=== PATIENT | female | born 1950 | race Caucasian/White ===

== ENCOUNTER 2019-06-08 07:28 | Outpatient (CLI) | payer MEDICARE, BC, SELFPAY ==
--- NOTE | 2019-06-08 07:15 | USCV_ITS ---
Krys Solis Age: 68 Gender: F : 1950 Exam Date: 06/08/2019 07:36 Ordering Phys: Claudia Gorman MD ([email or web address]) Technologist: Dilia Garcia [place] [facility] [place] ASSESS LVF BP: 105 / 54 HR: 88 Rhythm: Sinus Technical Quality: Adequate MEASUREMENTS (Male / Female) Normal Values 2D ECHO LV Diastolic Diameter PLAX 6.1 cm 4.2 - 5.9 / 3.9 - 5.3 cm LV Systolic Diameter PLAX 5.6 cm IVS Diastolic Thickness 0.7 cm 0.6 - 1.0 / 0.6 - 0.9 cm IVS Systolic Thickness 0.8 cm LVPW Diastolic Thickness 0.8 cm 0.6 - 1.0 / 0.6 - 0.9 cm LVPW Systolic Thickness 1.1 cm LVOT Diameter 2.0 cm LV Ejection Fraction 2D Teich 19.1 % LV Ejection Fraction MOD 2C 20.8 % LV Ejection Fraction 2C AL 19.7 % LA Diameter 4.3 cm LA Width 4.7 cm LA Height 5.6 cm RA Width 3.9 cm RA Height 4.6 cm Aorta at Sinotubular Diameter 2.2 cm M-MODE LV Diastolic Diameter MM 7.1 cm 4.2 - 5.9 / 3.9 - 5.3 cm LV Systolic Diameter MM 5.8 cm LV Ejection Fraction MM Teich 37.5 % IVS Diastolic Thickness MM 0.6 cm 0.6 - 1.0 / 0.6 - 0.9 cm IVS Systolic Thickness MM 0.9 cm LVPW Diastolic Thickness MM 0.5 cm 0.6 - 1.0 / 0.6 - 0.9 cm LVPW Systolic Thickness MM 1.0 cm Aortic Annulus Diameter 2.5 cm LA Ao Ratio MM 1.7 MV E Point Septal Separation 2.1 cm DOPPLER AV Peak Velocity 93.0 cm/s LVOT Peak Velocity 53.0 cm/s AV Area Cont Eq vti 1.8 cm squared AV Area Cont Eq pk 1.8 cm squared MV Area PHT 5.0 cm squared Mitral E to A Ratio 1.4 MV E' Velocity 8.0 cm/s Mitral E to MV E' Ratio 13.2 Mitral E to LV E' Lateral Ratio 10.5 Mitral E to LV E' Septal Ratio 17.9 TR Peak Velocity 403.8 cm/s TR Peak Gradient 65.2 mmHg TR Mean Velocity 311.4 cm/s TR Mean Gradient 40.7 mmHg TR Velocity Time Integral 144.0 cm TV Peak E Velocity 55.0 cm/s Right Atrial Pressure 3.0 mmHg Pulmonary Artery Systolic Pressu 68.2 mmHg PV Peak Velocity 59.0 cm/s RV Acceleration Time 0.1 s RV Ejection Time 0.2 s RV AcT/ET 0.2 FINDINGS Left Ventricle Severely increased left ventricular cavity size. Severely decreased left ventricular systolic function. Left ventricular ejection fraction is estimated at 30 %. Global left ventricular hypokinesis. Grade II/IV diastolic dysfunction, moderately elevated filling pressures. Right Ventricle Normal right ventricular size. Moderate pulmonary hypertension, RVSP 68.2 mmHg. Right Atrium The right atrium is normal in size. Left Atrium Severely increased left atrial size. Mitral Valve Mildly thickened mitral valve. No mitral valve stenosis. Severe mitral valve regurgitation. Aortic Valve Structurally normal aortic valve without significant sclerosis or stenosis. There is no aortic regurgitation. Tricuspid Valve Moderate tricuspid valve regurgitation. Pulmonic Valve Moderate pulmonary valve regurgitation. Pericardium Normal pericardium without effusion. Aorta Normal ascending aorta dimension. CONCLUSIONS 1-Severely increased left ventricular cavity size. Severely decreased left ventricular systolic function. Left ventricular ejection fraction is estimated at 30 %. Global left ventricular hypokinesis. Grade II/IV diastolic dysfunction, moderately elevated filling pressures. 2-Normal right ventricular size. Moderate pulmonary hypertension, RVSP 68.2 mmHg. 3-Severely increased left atrial size. 4-Mildly thickened mitral valve. No mitral valve stenosis. Severe mitral valve regurgitation. 5-Structurally normal aortic valve without significant sclerosis or stenosis. There is no aortic regurgitation. 6-Moderate tricuspid valve regurgitation. 7-Moderate pulmonary valve regurgitation. 8-There is no pericardial effusion. 9-When compared to the prior echocardiogram dated 03/24/2018, left ventricular ejection fraction has reduced from moderately depressed 40% to severely depressed 30%. There is worsening of mitral valve regurgitation to severe category Claudia Gorman MD (Electronically Signed) Final Date: 08 June 2019 11:42 S
== END 2019-06-08 07:29 | disposition home or self-care (01) ==
LOC: RAD 07:32
PROVIDERS: Family Provider Family Medicine; PCP Family Medicine; Visit Provider Internal Medicine Cardiovascular Disease
DX: I07.1 Rheumatic tricuspid insufficiency (principal); I37.1 Nonrheumatic pulmonary valve insufficiency; I34.0 Nonrheumatic mitral (valve) insufficiency; R06.02 Shortness of breath; R07.9 Chest pain, unspecified
CPT/HCPCS: 93306

== ENCOUNTER → 2019-06-16 15:19 | Outpatient (BNVA) | payer MEDICARE, BC, SELFPAY | PROVIDERS: Family Provider Family Medicine; PCP Family Medicine; Visit Provider Nurse Practitioner Family | DX: I50.9 Heart failure, unspecified (principal); R07.9 Chest pain, unspecified | CPT/HCPCS: 80048; 83880 ==

== ENCOUNTER 2021-03-14 11:43 | Outpatient (CLI) | payer MEDICARE, BC, SELFPAY ==
--- NOTE | 2021-03-14 11:48 | MM_ITS ---
WS: [id number] BILATERAL DIGITAL SCREENING MAMMOGRAPHY WITH CAD CLINICAL INFORMATION: SCREENING HISTORY: Screening mammogram. No current complaints. COMPARISON: TECHNIQUE: Bilateral CC and MLO views. FINDINGS: History of breast reduction Scattered fibroglandular densities bilaterally. No suspicious focal mass, asymmetry, calcifications, or architectural distortion. No evidence of malignancy. MM/[id number] IMPRESSION: BI-RADS: 1-Negative FOLLOW UP: 1 Year Follow-up Recommend return to annual screening mammography.
== END 2021-03-14 11:44 | disposition home or self-care (01) ==
PROVIDERS: PCP Family Medicine; Visit Provider Family Medicine
DX: Z12.31 Encounter for screening mammogram for malignant neoplasm of breast (principal)
CPT/HCPCS: 77067

== ENCOUNTER → 2022-02-04 14:00 | Outpatient (BNVA) | payer MEDICARE, BC, SELFPAY | PROVIDERS: PCP Family Medicine; Visit Provider Internal Medicine Rheumatology | DX: R76.8 Other specified abnormal immunological findings in serum (principal); Z87.2 Personal history of diseases of the skin and subcutaneous tissue; I50.42 Chronic combined systolic (congestive) and diastolic (congestive) heart failure; H54.8 Legal blindness, as defined in USA | CPT/HCPCS: 99203; 99204 ==

== ENCOUNTER 2022-04-17 08:10 | Outpatient (CLI) | payer MEDICARE, BC, SELFPAY ==
--- NOTE | 2022-04-17 08:21 | MM_ITS ---
WS: [id number] Bilateral screening 3D tomosynthesis digital mammogram, 04/17/2022 Clinical Data: SCREENING Comparison: 03/14/2021, 02/23/2019, 02/11/2018, 01/20/2017, 05/23/2015, 12/14/2012, 08/15/2011, 07/17/2009, . Findings: The breast parenchymal pattern shows fat replacement. No spiculated masses or clustered calcification s are seen. There are no secondary signs of carcinoma. There are lymph nodes in both axilla. MM/[id number] Impression: 1. Negative bilateral mammogram unchanged. 2. Recommend annual screening mammograms. BIRADS: 1-Negative FOLLOW UP: 1 Year Follow-up The CAD program checker was used.
== END 2022-04-17 08:11 | disposition home or self-care (01) ==
PROVIDERS: PCP Family Medicine; Visit Provider Internal Medicine
DX: Z12.31 Encounter for screening mammogram for malignant neoplasm of breast (principal)
CPT/HCPCS: 77063; 77067

== ENCOUNTER 2023-07-08 10:01 | Outpatient (CLI) | payer MEDICARE, OTHER, SELFPAY ==
--- NOTE | 2023-07-08 10:08 | MM_ITS ---
WS: [id number] BILATERAL SCREENING DIGITAL TOMOSYNTHESIS MAMMOGRAM WITH CAD HISTORY: Screening. COMPARISON: 04/17/2022 and 03/14/2021 Bilateral CC and MLO views with tomosynthesis and synthetic mammography submitted. Computer aided det ection analyzed. Breast composition: There are scattered areas of fibroglandular density. No suspicious masses, microc alcifications or architectural distortion. Stable oil cyst measures 5 mm medial LEFT breast. Benign c alcifications LEFT breast. IMPRESSION: MM/[place] [id number] BI-RADS: 2-Benign FOLLOW UP: 1 Year Follow-up
== END 2023-07-08 10:02 | disposition home or self-care (01) ==
LOC: RAD 10:02
PROVIDERS: PCP Family Medicine; Visit Provider Family Medicine
DX: Z12.31 Encounter for screening mammogram for malignant neoplasm of breast (principal)
CPT/HCPCS: 77063; 77067

== ENCOUNTER 2023-11-03 09:01 | Emergency (ER) | payer MEDICARE, OTHER, SELFPAY ==
[2023-11-03] VITALS (7 sets, daily range): BP systolic 94–123; BP diastolic 51–65; PULSE 60–78; RESP 17–25; TEMP 36.4; O2SAT 96–99; BMI 22.4
--- NOTE | 2023-11-03 09:04 | XR_ITS ---
WS: [id number] PORTABLE CHEST HISTORY: Weakness COMPARISON: 09/19/2018 Quality this examination is significantly compromised by overlying artifacts obscuring portions of th e lungs and soft tissues. Hyperexpanded lungs. There are a few scattered granulomata. Not all portions of the lungs are visuali zed well. No pleural effusion or pneumothorax. Cardiac size: Normal. Mediastinum/Aorta: Normal mediastinum. No osseous abnormality seen. XR/XR chest 1V portable [id number] IMPRESSION: Chronic emphysema with hyperexpanded lungs. Suboptimal imaging quality due to technique.
--- NOTE | 2023-11-03 09:09 | ECG_ITS ---
[facility] Test Date: 2023-11-03 Pat Name: Krys Solis Department: Room: Gender: Female Runway Model: : 1950 Requested By: Anayeli Samayoa Order Number: [id number] Liliana MD: Keny Glaser M.D. Measurements Intervals [place] Rate: 76 P: 0 ME: 0 QRS: 62 QRSD: 114 T: 214 QT: 401 QTc: 452 Interpretive Statements SINUS RHYTHM WITH PVCs LOW QRS VOLTAGE IN PRECORDIAL LEADS [QRS DEFLECTION < 1.0 mV IN CHEST LEADS] SEPTAL MYOCARDIAL INFARCTION , OF INDETERMINATE AGE [40+ ms Q WAVE IN V1/V2] MODERATE T-WAVE ABNORMALITY, CONSIDER LATERAL ISCHEMIA [-0.1+ mV T-WAVE IN I/aVL/V5/V6] Compared to ECG 09/19/2018 15:38:03 Low QRS voltage now present Myocardial infarct finding now present T-wave abnormality still present Possible ischemia still present Electronically Signed On 11-03-2023 10:13:33 CDT by Keny Glaser M.D. [id number]
[2023-11-03] MEDS: sodium chloride 0.9% 1,000 ML 999 ML IV (09:17)
[2023-11-03] MEDS: ondansetron 2 mg/ML SDV 2 mL 8 MG IVP ×2 (09:17→10:29)
--- NOTE | 2023-11-03 09:41 | ED_ITS ---
HPI - Syncope 2 General: Chief Complaint: Syncope Stated Complaint: SYNCOPE Time Seen by Provider: 11/03/23 09:02 History of Present Illness: 73-year-old female with a history of com plete blindness, hypertension, SVT, cardiomyopathy with CHF, who presents to the emergency by ambulance room after having a syncopal episode. She was at the nail salon and had gotten up from a chair to move to another room when she sat down she passed out. She has had some nausea. She said this morning she was having a bit of a bellyache and had some diarrhea. On presentation here she becomes nauseous and starts vomiting. No focal abdominal pain. No fevers. No altered mental status. No focal motor deficits. No headache. No chest pain. No shortness of breath. EMS reports she was hypotensive in the 90s to 100s systolic. Review of Systems 2 Narrative: Constitutional symptoms: Negative except as documented in HPI. Skin symptoms: Negative except as documented in HPI. Eye symptoms: Negative except as documented in HPI. ENMT symptoms: Negative except as documented in HPI. Respiratory symptoms: Negative except as documented in HPI. Cardiovascular symptoms: Negative except as documented in HPI. Gastrointestinal symptoms: Negative except as documented in HPI. Genitourinary symptoms: Negative except as documented in HPI. Musculoskeletal symptoms: Negative except as documented in HPI. Neurologic symptoms: Negative except as documented in HPI. Psychiatric symptoms: Negative except as documented in HPI. Endocrine symptoms: Negative except as documented in HPI. PFSH ED 2 PFSH: Medical History (Updated 11/03/23 @ 11:58 by Anayeli Raines MD) Legally blind hx of retinitis pigmentosa? Positive NAVNEET (antinuclear antibody) Hx of discoid lupus erythematosus Cardiomyopathy CHF (congestive heart failure) SVT (supraventricular tachycardia) Surgical History S/P hysterectomy S/P bilateral breast reduction S/P breast lumpectomy Family History Father Heart disease Social History Smoking and tobacco/nicotine status: never used tobacco/nicotine Physical Exam 2 Narrative: EXAM NARRATIVE: General: Alert, no acute distress. Skin: Warm, dry. Head: Normocephalic, atraumatic. Neck: Supple, trachea midline. Eye: Extraocular movements are intact. Ears, nose, mouth and throat: mucosa moist. Cardiovascular: Regular, Normal peripheral perfusion. Respiratory: Lungs are clear to auscultation, respirations are non-labored, breath sounds are equal, Symmetrical chest wall expansion. Gastrointestinal: Soft, Nontender, Non distended Musculoskeletal: Normal ROM, no deformity. Neurological: Alert and oriented, No focal neurological deficit observed. Psychiatric: Cooperative, appropriate mood & affect. Course 2 Vital Signs: Vital signs: Vital Signs Temperature 97.5 F L 11/03/23 09:09 Pulse Rate 60 11/03/23 11:44 Respiratory Rate 17 11/03/23 10:30 Blood Pressure 110/51 11/03/23 11:44 Pulse Oximetry 97 11/03/23 11:44 Oxygen Delivery Me thod Room Air 11/03/23 10:30 MDM - Syncope Medical Decision Making Medical decision making: Differential diagnosis including but not limited to and based on the above HPI, review of systems and physical exam in this patient with syncope: Vasovagal, orthostatics hypotension, cardiac dysrhythmia, myocardial infarction, infection and hypotension, Orders placed to evaluate differential diagnosis based on the above differential, HPI and physical exam EK:09 AM. Rate 76. Normal sinus rhythm, No ST-T changes, frequent PVCs, normal [place] & QRS intervals, This was reviewed and interpreted by myself the ER physician at 9:15 AM Repeat EKG: Time 1125. Rate 67. Normal sinus rhythm, No ST-T changes, no ectopy, normal [place] & QRS intervals, This was reviewed and interpreted by myself the ER physician at 11:30 AM. Still with some PVCs but decreased frequency. Lab Review: Laboratory results were reviewed and interpreted by myself the emergency room physician. No leukocytosis. No anemia. BUN and creatinine are 17 and 1.2 which is just slightly above her baseline and would indicate some mild dehydration. Urinalysis is negative. I reviewed the patient's medical record. Reexamination: Patient says she feels better. She has required 16 mg of Zofran and a liter of fluids. I think she probably had a vasovagal episode secondary to a viral gastroenteritis. Assessment and plan: Viral gastroenteritis Nausea and vomiting Syncope Dehydration ?Two 8 mg doses of Zofran. 1 L normal saline bolus. - Discharged home - Discussed findings and plan with patient. Answered any questions. - All laboratory values were reviewed and interpreted personally by myself, the ER physician - All imaging was reviewed and interpreted personally by myself, the ER physician. - Evaluation and treatment of this problem were appropriate in the emergency setting Lab Data 11/03/23 09:10 11/03/23 09:10 Radiology Impressions Chest X-Ray 11/03/23 09:04 IMPRESSION: Chronic emphysema with hyperexpanded lungs. Suboptimal imaging quality due to technique. Laboratory Results WBC 7.46 10^3/uL (3.29-11.43) 11/03/23 09:10 RBC 3.66 10^6/uL (3.85-5.65) L 11/03/23 09:10 Hgb 11.50 g/dL (11.27-16.99) 11/03/23 09:10 Hct 35.3 % (36-47) L 11/03/23 09:10 MCV 96.4 fl (85-98) 11/03/23 09:10 MCH 31.4 pg (27-33) 11/03/23 09:10 MCHC 32.6 g/dL (30-55) 11/03/23 09:10 RDW 12.6 % (12.1-15.1) 11/03/23 09:10 Plt Count 273 10^3/cmm (157-399) 11/03/23 09:10 MPV 10.8 fL (7.4-10.4) H 11/03/23 09:10 Neut % (Auto) 59.3 % 11/03/23 09:10 Lymph % (Auto) 26.3 % 11/03/23 09:10 [place] % (Auto) 10.7 % 11/03/23 09:10 Eos % (Auto) 2.7 % 11/03/23 09:10 Baso % (Auto) 0.7 % 11/03/23 09:10 Neut # (Auto) 4.43 10^3/uL (1.8-7.7) 11/03/23 09:10 Lymph # (Auto) 2.0 10^3/uL (0.8-4.8) 11/03/23 09:10 [place] # (Auto) 0.8 10^3/uL (0.2-0.9) 11/03/23 09:10 Eos # (Auto) 0.2 10^3/uL (0.0-0.8) 11/03/23 09:10 Baso # (Auto) 0.1 10^3/uL (0.0-0.1) 11/03/23 09:10 Nucleated RBC % (auto) 0 % 11/03/23 09:10 Nucleated RBCs # 0.0 /100WBC 11/03/23 09:10 Sodium 141 mmol/L (136-145) 11/03/23 09:10 Potassium 4.0 mmol/L (3.5-5.1) 11/03/23 09:10 Chloride 106 mmol/L (98-107) 11/03/23 09:10 Carbon Dioxide 22 mmol/L (22-29) 11/03/23 09:10 Anion Gap 17.0 (5-19) 11/03/23 09:10 BUN 17 mg/dL (8-23) 11/03/23 09:10 Creatinine 1.2 mg/dL (0.5-0.9) H 11/03/23 09:10 GFR Calculation Not Reportable 11/03/23 09:10 Glucose 143 mg/dL (65-115) H 11/03/23 09:10 Calculated Osmolality 296 mOsm/kg (285-295) H 11/03/23 09:10 Lactic Acid 1.7 mmol/L (0.5-2.2) 11/03/23 09:10 Calcium 9.3 mg/dL (8.5-10.5) 11/03/23 09:10 Total Bilirubin 0.5 mg/dL (0.15-1.2) 11/03/23 09:10 AST 19 U/L (0-32) 11/03/23 09:10 ALT 14 U/L (0-33) 11/03/23 09:10 Alkaline Phosphatase 74 U/L (35-105) 11/03/23 09:10 Troponin T Baseline 13 ng/L (0-10) H 11/03/23 09:10 Troponin T 120 Minute 9.29 ng/L (0-10) 11/03/23 11:01 Delta Troponin T -3.71 ABS# (0-10) L 11/03/23 11:01 C-Reactive Protein 3.0 mg/L (0.0-4.9) 11/03/23 09:10 Total Protein 8.1 g/dL (6.6-8.7) 11/03/23 09:10 Albumin 3.9 g/dL (3.5-5.2) 11/03/23 09:10 Globulin 4.2 g/dL (1.3-4.6) 11/03/23 09:10 Lipase 32 U/L (13-60) 11/03/23 09:10 Urine Color Yellow (Yellow) 11/03/23 10:39 Urine Appearance Clear (CLEAR) 11/03/23 10:39 Urine pH 7 (5-7) 11/03/23 10:39 Ur Specific [place] 1.005 (1.005-1.030) 11/03/23 10:39 Urine Protein Neg (Negative) 11/03/23 10:39 Urine Glucose (UA) Norm (Normal) 11/03/23 10:39 Urine Ketones 1+ (Negative) H 11/03/23 10:39 Urine Blood Neg (Negative) 11/03/23 10:39 Urine Nitrate Negative (Negative) 11/03/23 10:39 Urine Bilirubin Neg (Negative) 11/03/23 10:39 Urine Urobilinogen Norm mg/dL (Negative) 11/03/23 10:39 Ur Leukocyte Esterase Negative (Negative) 11/03/23 10:39 Urine RBC 0-4 /hpf (0-2) H 11/03/23 10:39 Urine WBC 0-4 /hpf (0-5) H 11/03/23 10:39 Ur Squamous Epith Cells 0-4 /hpf (0-5) H 11/03/23 10:39 Amorphous Sediment Not Reportable 11/03/23 10:39 Urine Bacteria Trace /hpf (NONE) 11/03/23 10:39 No radiology studies performed this visit Discharge Plan Discharge Patient Disposition: Home Clinical Impression: Syncope, Dehydration, Viral gastroenteritis, Nausea and vomiting Condition: Stable Prescriptions: New ondansetron 8 mg tablet,disintegrating 8 mg PO .q6 PRN (Reason: nausea and vomiting) Qty: 14 0RF No Action aspirin [Adult Low Dose Aspirin] 81 mg tablet,delayed release (DR/EC) 81 mg PO DAILY latanoprost 0.005 % drops 1 drop ophthalmic (eye) DAILY nitroglycerin [Nitrostat] 0.4 mg tablet, sublingual 0.4 mg SUBLINGUAL Q5M PRN (Reason: Chest Pain) metoprolol succinate 25 mg tablet extended release 24 hr 25 mg PO DAILY 30 Days Qty: 30 6RF Entresto 24-26 mg tablet 1 tab PO BID Qty: 60 2RF digoxin 125 mcg (0.125 mg) tablet 125 mcg PO DAILY Qty: 30 0RF Rx Instructions: TAKE 1 TABLET BY MOUTH DAILY THURSDAY THROUGH THURSDAY AND OFF THURSDAY AND THURSDAY. spironolactone 25 mg tablet 12.5 mg PO DAILY erythromycin 5 mg/gram (0.5 %) ointment See Rx Instructions .ROUTE .COMPLEX Rx Instructions: APPLY SMALL AMOUNT TO BOTH EYES NEEDED furosemide 20 mg tablet 20 mg PO DAILY PRN (Reason: SWELLING/WEIGHT GAIN) timolol maleate 0.5 % drops 1 drp ophthalmic (eye) BID fluoride (sodium) 1.1 % paste See Rx Instructions .ROUTE .COMPLEX Rx Instructions: BRUSH TWICE DAILY. SPIT OUT EXCESS DO NOT SWISH. Tyrvaya 0.03 mg/spray spray, metered, non-aerosol 1 spray INTRANASAL BID zolpidem 5 mg tablet 5 mg PO BEDTIME PRN (Reason: Insomnia) Discharge Orders: Discharge ED (Routine); Ordered 11/03/23 Ordered By: Anayeli Raines Referrals: Kirill Chilel MD [Primary Care Provider] - 4-7 days Discharge Diet: Advance as tolerated Discharge Activity: Increase activity as tolerated Patient Instructions: Dehydration (ED), Syncope (ED), Gastroenteritis (ED), Acute Nausea and Vomiting (ED) Activity Restrictions/Additional Instructions: Thank you for choosing [facility] for your healthcare needs today. Please realize this is an emergency room and that we are providing you with a medical screening exam and this may not be complete and all inclusive of all the testing and or work up that you may need to determine your ailment or severity of your illness. You have been screened and evaluated and felt safe for discharge. Health conditions do change or evolve sometimes and as such it is important that you follow up with your Primary Doctor to be re checked, 3-5 days is a general good time frame for follow up. You are always welcome to return to the ED for re assessment if your symptoms are worsening or you have new concerns Coding Level of Care Code ED Chief Hospital Administrator for Dashawn Langley
[2023-11-03 09:43] LABS: Basophils # 0.1 10^3/uL (0.0-0.1); Basophils % 0.7 %; Eosinophils # 0.2 10^3/uL (0.0-0.8); Eosinophils % 2.7 %; Hematocrit 35.3 % (36-47); Lymphocytes % 26.3 %; Mean Corpuscular HGB Conc 32.6 g/dL (30-55); Mean Corpuscular Hemoglobin 31.4 pg (27-33); Mean Corpuscular Volume 96.4 fl (85-98); Mean Platelet Volume 10.8 fL (7.4-10.4); Monocytes # 0.8 10^3/uL (0.2-0.9); Monocytes % 10.7 %; Neutrophils # 4.43 10^3/uL (1.8-7.7); Neutrophils % 59.3 %; Nucleated Red Blood Cells % 0 %; Platelet Count 273 10^3/cmm (157-399); Red Blood Count 3.66 10^6/uL (3.85-5.65); Red Cell Distribution Width 12.6 % (12.1-15.1); White Blood Count 7.46 10^3/uL (3.29-11.43)
[2023-11-03 09:54] LABS: Lactic Sepsis W/Reflex 1.7 mmol/L (0.5-2.2); Troponin(5th) Baseline 13 ng/L (0-10)
[2023-11-03 10:02] LABS: Alanine Aminotransferase 14 U/L (0-33); Albumin Level 3.9 g/dL (3.5-5.2); Alkaline Phosphatase 74 U/L (35-105); Aspartate Amino Transferase 19 U/L (0-32); Blood Urea Nitrogen 17 mg/dL (8-23); Calcium 9.3 mg/dL (8.5-10.5); Carbon Dioxide 22 mmol/L (22-29); Chloride 106 mmol/L (98-107); Globulin 4.2 g/dL (1.3-4.6); Glucose 143 mg/dL (65-115); Lipase 32 U/L (13-60); Osmolality Calculated 296 mOsm/kg (285-295); Sodium 141 mmol/L (136-145); Total Bilirubin 0.5 mg/dL (0.15-1.2); Total Protein 8.1 g/dL (6.6-8.7)
[2023-11-03 10:03] LABS: Creatinine Clr Calc Pharmacy 38.1103
--- NOTE | 2023-11-03 11:05 | ECG_ITS ---
[facility] Test Date: 2023-11-03 Pat Name: Krys Solis Department: Room: Gender: Female Tailercpa: : 1950 Requested By: Anayeli Samayoa Order Number: [id number] Liliana MD: Keny Glaser M.D. Measurements Intervals [place] Rate: 67 P: 81 MT: 181 QRS: 69 QRSD: 96 T: 128 QT: 416 QTc: 442 Interpretive Statements SINUS RHYTHM WITH FREQUENT VENTRICULAR PREMATURE COMPLEXES SEPTAL MYOCARDIAL INFARCTION , PROBABLY OLD [40+ ms Q WAVE IN V1/V2] Compared to ECG 11/03/2023 09:09:16 T-wave abnormality no longer present Possible ischemia no longer present Myocardial infarct finding still present Electronically Signed On 11-03-2023 15:30:22 CDT by Keny Glaser M.D. [id number]
[2023-11-03 11:09] LABS: Bacteria Urine TRACE /hpf; Bilirubin Urine Neg (Negative); Blood Urine Neg (Negative); Glucose Urine UA Norm (Normal); Ketones Urine 1+ (Negative); Leukocyte Esterase Urine Negative (Negative); Nitrate Urine Negative (Negative); Protein Urine Neg (Negative); RBC Urine 0-4 /hpf (0-2); Specific Gravity, Urine 1.005 (1.005-1.030); Squamous Epithelial Cell Urine 0-4 /hpf (0-5); Urine Appearance Clear (CLEAR); Urine Color Yellow (Yellow); Urobilinogen Urine Norm (Negative); WBC Urine 0-4 /hpf (0-5); pH Urine 7 (5-7)
[2023-11-03 11:23] LABS: Troponin 5 2HR 9.29 ng/L (0-10)
[2023-11-03 11:24] LABS: Troponin 5 2HR Delta -3.71 ABS# (0-10)
== END 2023-11-03 12:35 | disposition home or self-care (01) ==
PROVIDERS: Emergency Provider Emergency Medicine; PCP Family Medicine
DX: R55 Syncope and collapse (principal); E86.0 Dehydration; A08.4 Viral intestinal infection, unspecified; Z79.82 Long term (current) use of aspirin; I42.9 Cardiomyopathy, unspecified; I50.9 Heart failure, unspecified; H54.8 Legal blindness, as defined in USA; L93.0 Discoid lupus erythematosus
CPT/HCPCS: 36415; 71045; 80053; 81001; 83605; 83690; 84484; 85025; 86140; 87040; 93005; 96374; 96375; 99285; J2405; J7030

== ENCOUNTER 2024-04-26 13:00 | Outpatient (CLI) | payer MEDICARE, OTHER, SELFPAY ==
--- NOTE | 2024-04-26 13:13 | XR_ITS ---
WS: [email or web address] SCREENING DEXA SCAN [employer] CLINICAL INFORMATION: postmenopausal COMPARISON: None. FINDINGS: The L1-L4 bone mineral density measures 1.044 g/cm2. This corresponds to a T score score of -1.1 and Z score of 0.7. Left femoral neck bone mineral density measures 0.971 g/cm2. This corresponds to a T score of -0.3 an d Z score of 1.4. Right femoral neck bone mineral density measures 0.987 g/cm2. This corresponds to a T score -0.2of an d Z score of 1.6. Mean femoral neck bone mineral density measures 0.979 g/cm2. This corresponds to a T score of -0.2 an d Z score of 1.5. XR/XR DEXA axial skeleton* [id number] IMPRESSION: Osteopenia lumbar spine. Normal bone mineralization femoral necks. Patient's FRAX calculated 10 year probability for major osteoporotic fracture i s 9.5% and osteoporotic hip fracture is 1.5%.
== END 2024-04-26 13:01 | disposition home or self-care (01) ==
LOC: RAD 13:01
PROVIDERS: PCP Family Medicine; Visit Provider Family Medicine
DX: Z78.0 Asymptomatic menopausal state (principal); M85.88 Other specified disorders of bone density and structure, other site
CPT/HCPCS: 77080

== ENCOUNTER 2024-09-07 12:33 | Outpatient (CLI) | payer MEDICARE, OTHER, SELFPAY ==
--- NOTE | 2024-09-07 12:35 | MM_ITS ---
WS: [email or web address] BILATERAL 3D TOMOSYNTHESIS DIGITAL SCREENING MAMMOGRAM WITH CAD CLINICAL INFORMATION: SCREENING HISTORY: Screening mammogram. No current complaints. History of breast reduction COMPARISON: 2023 TECHNIQUE: Bilateral CC and MLO views. FINDINGS: Fatty-replaced breasts bilaterally. No suspicious focal mass, asymmetry, calcifications, or architectural distortion. No evidence of malignancy. Few incidental punctate calcifications. Eggshell calcification LEFT breast. Vascular calcification. MM/MM [facility] tomosynthesis [id number] IMPRESSION: DENSITY: The breasts are almost entirely fatty. BI-RADS: 2 - Benign. FOLLOW UP: 1 Year Follow-up Recommend return to annual screening mammography.
== END 2024-09-07 12:34 | disposition home or self-care (01) ==
PROVIDERS: PCP Family Medicine; Visit Provider Family Medicine
DX: Z12.31 Encounter for screening mammogram for malignant neoplasm of breast (principal); R92.313 Mammographic fatty tissue density, bilateral breasts; R92.1 Mammographic calcification found on diagnostic imaging of breast
CPT/HCPCS: 77063; 77067